=== PATIENT | male | born 1985 | race Caucasian/White ===

== ENCOUNTER 2020-12-29 10:47 | Emergency (ER) | payer MEDICAID ==
[~2020-12-29] VITALS: Ht 188 cm; Wt 100.4 kg
--- NOTE | 2020-12-29 11:15 | NUR ---
THE PATIENT IS A 35M EXPERIENCING HOMELESSNESS WITH COMPLAINTS OF WOUNDS TO R LEG FOR TWO WEEKS, WORSENING. REDNESS, SWELLING AROUND TWO WOUNDS ON R LOWER LEG, BLACK IN CENTER WITH PURULENT DRAINAGE. BP, SP02 MONITORS IN PLACE AND CALL LIGHT WITHIN REACH.
[2020-12-29] MEDS ORDERED: DIPH,PERTUSS(ACELL),TET VAC/PF 0.5 ML IM-VACC ONE ×2 (11:21→11:30)
[2020-12-29] MEDS ORDERED: AMPICILLIN/SULBACTAM 3 GM in SODIUM CHLORIDE 0.9% 100 ML IV ONE (11:30)
[2020-12-29] MEDS ORDERED: SODIUM CHLORIDE FLUSH 10ML SYR IVF ONE (11:30)
[2020-12-29 12:03] LABS: BASOPHILS % (AUTO) 0 % (0-1); EOSINOPHILS % (AUTO) 2 % (1-7); LYMPHOCYTES % (AUTO) 21 % (22-44); MEAN CORPUSCULAR HEMOGLOBIN 28.4 pg (27.5-34.5); MEAN CORPUSCULAR HGB CONC 33.5 g/dL (33.2-36.2); MEAN PLATELET VOLUME 6.7 fL (7.4-10.4); MONOCYTES % (AUTO) 8 % (2-9); NEUTROPHILS % (AUTO) 69 % (42-75); PLATELET COUNT 334 x10^3/uL (130-400); RED BLOOD COUNT 4.19 x10^6/uL (4.38-5.82); RED CELL DISTRIBUTION WIDTH 13.2 % (9.4-14.8)
[2020-12-29 12:05] LABS: MD NO
--- NOTE | 2020-12-29 12:08 | NUR ---
AFTER ULTRASOUND LEG COMPLETED, BLOOD CULTURES X2 OBTAINED AND ANTIBIOTICS STATES NOTED ON MAR
[2020-12-29 12:14] LABS: ALANINE AMINOTRANSFERASE 23 U/L (12-78); ALBUMIN 3.4 g/dL (3.4-5.0); ANION GAP 3 mmol/L (5-15); CALCIUM 8.5 mg/dL (8.5-10.1); CHLORIDE 107 mmol/L (98-107); CREATININE 0.89 mg/dL (0.7-1.3)
[2020-12-29 12:16] LABS: ALKALINE PHOSPHATASE 64 U/L (45-117); BILIRUBIN,TOTAL 0.4 mg/dL (0.2-1.0); TOTAL PROTEIN 7.4 g/dL (6.4-8.2)
[2020-12-29] MEDS ORDERED: MUPIROCIN OINT 2%, 22GM TP SCH (12:30)
[2020-12-29] MEDS ORDERED: NEOSPORIN OINT. PKT 1 PACKET ONE (12:41)
[2020-12-29 13:12] VITALS: BP 112/71
--- NOTE | 2020-12-29 13:16 | NUR ---
Patient/Caregiver given discharge instructions and they have confirmed that they understand the instructions. Patient ambulatory with slow, steady gait.
== END 2020-12-29 13:17 | disposition home or self-care (01) ==
LOC: ED 12:01
DX: L03.115 Cellulitis of right lower limb (principal)
CPT/HCPCS: 36415; 80053; 83605; 85025; 87040; 90471; 90715; 93971; 96365; 99284; J0295